=== PATIENT | male | born 1985 | race Two or more races ===

== ENCOUNTER 2023-10-27 01:01 | Emergency (ER) | payer MEDICAID, OTHER ==
[~2023-10-27] VITALS: Ht 188 cm; Wt 99.8 kg
[2023-10-27] MEDS ORDERED: IBUPROFEN 600 MG TABLET ONE (01:27)
[2023-10-27] MEDS: IBUPROFEN 600 MG TABLET PO ONE (01:28)
[2023-10-27 03:47] VITALS: BP 132/66; TEMP 98.7; O2SAT 98
== END 2023-10-27 03:59 | disposition home or self-care (01) ==
LOC: ER 01:04 → EDBD 01:04 → ER 03:59
DX: M79.675 Pain in left toe(s) (principal); I10 Essential (primary) hypertension; J45.909 Unspecified asthma, uncomplicated; F20.9 Schizophrenia, unspecified; Z60.2 Problems related to living alone
CPT/HCPCS: 73630-TC